=== PATIENT | male | born 1935 | race Caucasian/White ===

== ENCOUNTER 2016-04-17 09:30 | Day surgery (SDC) | payer MEDICARE, BC ==
[~2016-04-17 09:30] MED LIST: Acetaminophen TAB* 325 MG PO PRN; Buffered Lidocaine 1% SYR 3ML* 3 ML/SYR SYRINGE INTRADERM ONE; Cyclopentolate 1% OPTH.SOL* 2 ML BTL ONE; Flurbiprofen 0.03% OPTH.SOL* 2.5 ML BTL ONE; Lidocaine 1% MPF* 2 ML VIAL ONE; Lidocaine 2% EPI 1:200000 MPF* 20 ML VIAL ONE; Neomycin/Polymy/Dex OPTH.SUSP* MAXITROL 0.1% 5 ML ONE; Phenylephrine 2.5% OPTH.SOL* 2 ML BTL ONE; Povidone Iodine 5% OPTH* 30 ML BTL ONE; Proparacaine 0.5% OPHTH.SOL* 15 ML BTL ONE; acetaZOLAMIDE TAB* 250 MG ONE
[2016-04-17] MEDS ORDERED: Midazolam* 1 MG/ML 2 ML VIAL (2 MG) ONE (11:43)
[2016-04-17 13:05] VITALS: BP 152/66
--- NOTE | 2016-04-17 15:17 | OP ---
DATE OF OPERATION: 04/17/2016 - [facility] DATE OF : 1935. SURGEON: Redd Amin M.D. PREOPERATIVE DIAGNOSIS: Cataract right eye. POSTOPERATIVE DIAGNOSIS: Cataract right eye. OPERATIVE PROCEDURE: Phacoemulsification right eye with IOL. DESCRIPTION OF PROCEDURE: The patient was brought to the operating room after being given 1/2% Alcaine with epinephrine drops in the preoperative area. The eye was prepped and draped in the usual sterile fashion. Sterile drape and eyelid speculum were placed. Again, topical 1/2% Alcaine with epinephrine was given. A paracentesis incision was made at the 9 o'clock position with the No.75 blade. Clear cornea incision 2.2 x 2.2-mm was created at the 12 o'clock position starting at the anterior limbus using the 2.2-mm keratome. The anterior chamber was irrigated with 0.4 mL of 1% non-preservative intracameral lidocaine and filled with DisCoVisc. A capsulorrhexis was completed using the cystotome and the Utrata forceps. Hydrodissection was performed with balanced salt solution. The lens nucleus was removed with the Phacoemulsification handpiece without incident. Cortex was removed with the irrigation-aspiration handpiece. The capsular bag was re-inflated using DisCoVisc and an [id number] implant was inserted with the shooter. The irrigation-aspiration handpiece was used to remove all residual DisCoVisc. The eye was refilled with balanced salt solution and the wound checked and found to be watertight. Topical Maxitrol drops were given. [id number]/[facility] #: [id number] [facility]
== END 2016-04-17 13:00 | disposition home or self-care (01) ==
LOC: OREAST 09:30
PROVIDERS: ATTEND Specialist
DX: H25.811 Combined forms of age-related cataract, right eye (principal); H43.813 Vitreous degeneration, bilateral; I10 Essential (primary) hypertension; Z95.1 Presence of aortocoronary bypass graft
CPT/HCPCS: A9270-GY; J2250; V2632

== ENCOUNTER → 2016-05-08 07:46 | Day surgery (SDC) | payer MEDICARE, BC ==
[~2016-05-08 07:46] MED LIST changes: -Buffered Lidocaine 1% SYR 3ML* 3 ML/SYR SYRINGE INTRADERM ONE; +Buffered Lidocaine 1% SYRIN* 3 ML/SYR SYRINGE INTRADERM ONE; +Midazolam* 1 MG/ML 2 ML VIAL (2 MG) ONE
[2016-05-08 11:20] VITALS: BP 147/69
--- NOTE | 2016-05-08 22:28 | OP ---
DATE OF OPERATION: 05/08/16 [facility] DATE OF : [birth year] SURGEON: Redd Amin MD PRE-OP DIAGNOSIS: Cataract, left eye. POST-OP DIAGNOSIS: Cataract, left eye. OPERATIVE PROCEDURE: Phacoemulsification, left eye with IOL. DESCRIPTION OF PROCEDURE: The patient was brought to the operating room after being given 1/2% Alcaine with epinephrine drops in the preoperative area. The eye was prepped and draped in the usual sterile fashion. Sterile drape and eyelid speculum were placed. Again, topical 1/2% Alcaine with epinephrine was given. A paracentesis incision was made at the 3 o'clock position with the No.75 blade. Clear cornea incision 2.2 x 2.2-mm was created at the 6 o'clock position starting at the anterior limbus using the 2.2-mm keratome. The anterior chamber was irrigated with 0.4 mL of 1% non-preservative intracameral lidocaine and filled with DisCoVisc. A capsulorrhexis was completed using the cystotome and the Utrata forceps. Hydrodissection was performed with balanced salt solution. The lens nucleus was removed with the Phacoemulsification handpiece without incident. Cortex was removed with the irrigation-aspiration handpiece. The capsular bag was re-inflated using DisCoVisc and an [id number] 19.5 implant was inserted with the shooter, oriented to the 171-degree meridian. Horizontal reference pérez were made with the patient in the preoperative area. The irrigation-aspiration handpiece was used to remove all residual DisCoVisc. The eye was refilled with balanced salt solution and the wound checked and found to be watertight. Topical Maxitrol drops were given. [id number]/[facility] #: [id number] [facility]
== END | disposition home or self-care (01) ==
LOC: OREAST 07:46
PROVIDERS: ATTEND Specialist
DX: H25.812 Combined forms of age-related cataract, left eye (principal); H43.813 Vitreous degeneration, bilateral; I10 Essential (primary) hypertension; Z95.1 Presence of aortocoronary bypass graft
CPT/HCPCS: J2250; V2787

== ENCOUNTER → 2017-07-25 08:06 | Day surgery (SDC) | payer MEDICARE, BC ==
[~2017-07-25 08:06] MED LIST changes: -Acetaminophen TAB* 325 MG PO PRN; -Buffered Lidocaine 1% SYRIN* 3 ML/SYR SYRINGE INTRADERM ONE; -Cyclopentolate 1% OPTH.SOL* 2 ML BTL ONE; -Flurbiprofen 0.03% OPTH.SOL* 2.5 ML BTL ONE; +Heparin 2 UNITS/ML IVPREMIX* 2,000 ML IV ONE; +Heparin(*) 1000 UNIT/ML 10 ML VIAL CATH LAB IV ONE; +Iohexol 350 (CONTRAST) 200 ML MDV IV ONE; +Lidocaine 1% INJ* 10 MG/ML 30 ML SDV ONE; -Lidocaine 1% MPF* 2 ML VIAL ONE; -Lidocaine 2% EPI 1:200000 MPF* 20 ML VIAL ONE; +Midazolam* 1 MG/ML 10 ML VIAL (10 MG) ONE; -Midazolam* 1 MG/ML 2 ML VIAL (2 MG) ONE; +NS 0.9% 1000 ML* 1,000 ML IV SCH; -Neomycin/Polymy/Dex OPTH.SUSP* MAXITROL 0.1% 5 ML ONE; -Phenylephrine 2.5% OPTH.SOL* 2 ML BTL ONE; -Povidone Iodine 5% OPTH* 30 ML BTL ONE; -Proparacaine 0.5% OPHTH.SOL* 15 ML BTL ONE; -acetaZOLAMIDE TAB* 250 MG ONE; +fentaNYL* 50 MCG/ML 2 ML VIAL (100 MCG VIAL) ONE
[2017-07-25 12:51] VITALS: BP 145/91
--- NOTE | 2017-07-26 06:43 | CATH ---
CATH REPORT: ADDENDUM: DIAGNOSTIC CATHETERS: 6F ROSETTE, ROSETTE access required using an 0.035 hydrophilic ZIPwire for access. A 6FL 4 and a 6FL 3.5 with better engagement. Angio-Seal was used for hemostasis. HEMODYNAMICS: Initial BP 179/95. LV 166/9-21, no aortic valve gradient on pullback. ANGIOGRAPHY: RFA. Sheath entry is in segment 2. There was no stenosis. GAVIN. The ROSETTE is moderate in size, smooth, inserts into the mid LAD without insertion stenosis, fills antegrade to past the apex, as well as back retrograde to an area of competitive flow. There is LAD to distal circumflex PDA collateral filling. Incidentally noted is very heavy calcification of the right and left coronaries. Saphenous vein graft. The vein graft to OM1 and OM3 rises adjacent to a clip from left side of the aorta, is [id number] in caliber, prior to the side- to-side insertion into OM1, there is a gradually tapering stenosis culminating in about 75% to 80% stenosis. The OM1 fills competitively. The vein graft was occluded after OM1. There is probably not sufficient distal space for a filter wire for intervention. RCA. The RCA is small, calcified, probably codominant, although poorly filled , and occluded proximally. It was small at surgery, and thought not bypassable. Left main. The left main is relatively short without significant stenosis, but is calcified. LAD. The LAD has a proximal 60% to 70% stenosis, then supplies a moderate diagonal. There is some irregularity at the diagonal origin without any evident high-grade stenosis. The diagonal apparently has had a previous stent, although it is difficult to visualize. The LAD continuation has competitive flow from the GAVIN. Circumflex. The circumflex is heavily calcified, codominant if not dominant, large, with a high first marginal branch which has ostial 75% stenosis, that is the marginal that fills from the vein graft. The AV groove circumflex then has an eccentric 70% to 80% stenosis after which it supplies a lower marginal, identified as the third marginal at the time of surgery. The proximal third of that marginal is severely and diffusely diseased and small in caliber, distally the end-to-side vein graft anastomosis fills retrograde for a few centimeters, the graft is occluded between the 2 marginals. The distal circumflex supplies a small PDA. CONCLUSION: 1. Severe calcified 3-vessel disease with patent GAVIN to the LAD, patent but stenotic vein graft to OM1, which also fills from the [place] circumflex. Occluded saphenous vein graft distal to OM1, isolating OM3. Small codominant or non- dominant RCA, occluded, was too small for bypass grafting. 2. Given his functional class 1 angina on one antianginal, advanced age, complex coronary anatomy, recommendation is for medical therapy. If he fails medical therapy, he can be considered for complex more high-risk intervention at a tertiary center. 3. Successful right femoral artery access with Angio-Seal closure. [id number]/[facility] #: [id number] [facility]
--- NOTE | 2017-07-26 07:49 | CATH ---
CC: Dr. Ashby; Dr. Ch. CATH REPORT: DATE OF PROCEDURE: 07/25/17. PRIMARY CARE PHYSICIAN: Dr. Ashby. ACCOUNTS RECEIVABLE MANAGER: Dr. Ch. PROCEDURES: Right common femoral artery access, bilateral selective coronary cineangiography, GAVIN a ngiography, vein graft angiography, left heart catheterization. HISTORY: An 81-year-old male with bypass grafting, GAVIN to LAD, saphenous vein graft to OM1 and OM3 in 2005, apparently subsequently a bare metal to the diagonal in 2006. He now presents with 4 to 5 w eeks of stable functional class 1 angina on high dose beta blockade with high risk stress test with i nferolateral ischemia on imaging. His symptoms are troublesome, but not very limiting. He has high exercise expectations, gets angina with riding his bike up an incline or walking up a hill. PROCEDURE ACCESS: Right common femoral artery sheath 6.5 Gab[place]. MEDICATIONS: 1. Subcu lidocaine. 2. IV Versed. 3. IV fentanyl. DIAGNOSTIC CATHETERS: 6F ROSETTE, 6FL 3.5 DICTATION ENDS HERE [id number]/[facility] #: [id number]
== END | disposition home or self-care (01) ==
LOC: CHICATH 08:06
PROVIDERS: ATTEND Internal Medicine Cardiovascular Disease
DX: I25.708 Atherosclerosis of coronary artery bypass graft(s), unspecified, with other forms of angina pectoris (principal); I77.810 Thoracic aortic ectasia; Q25.44 Congenital dilation of aorta; I10 Essential (primary) hypertension; E78.00 Pure hypercholesterolemia, unspecified; F41.9 Anxiety disorder, unspecified; Z87.891 Personal history of nicotine dependence; I44.0 Atrioventricular block, first degree; I45.10 Unspecified right bundle-branch block
CPT/HCPCS: 93459; 99156; 99157; C1760; C1769; C1887; J1644; J2250; J3010